=== PATIENT | male | born 2000 | race Caucasian/White ===

== ENCOUNTER 2020-09-10 07:47 | Emergency (ER) | payer SELFPAY ==
[2020-09-10 08:00] VITALS: BP 127/73; PULSE 72; RESP 18; TEMP 36.6; O2SAT 100
[2020-09-10 08:12] LABS: Add Urine Microscopic? NO; Appearance Urine Clear (Clear); Bilirubin Urine Negative (Negative); Blood Urine Negative (Negative); Color Urine Yellow (Yellow); Glucose Urine UA Negative (Negative); Ketones Urine Negative (Negative); Leukocyte Esterase Ur Negative LEU/UL (Negative); Nitrate Urine Negative (Negative); Protein Urine Negative (Negative); pH Urine 7.5 (5.0-8.0)
--- NOTE | 2020-09-10 08:31 | ED.ABDPAIN ---
HPI - Abdominal Pain General Chief Complaint: Abdominal Pain Stated Complaint: low abd and groin pain Source: patient and RN notes reviewed Mode of arrival: ambulatory Limitations: no limitations History of Present Illness HPI narrative: patient states he has been lifting all night at least half his body weight. Feels soreness his left lower quadrant. Started this morning after his work last night. Says goes down into his left inguinal canal and then down into his left thigh. MD elicited complaint: abdominal pain Pertinent past history: none Pain Consistency: intermittent Location: LLQ Severity: moderate Quality: aching and dull Migration to: no migration Exacerbating factors: medication Relieving factors: nothing Associated symptoms: denies other symptoms Related Data Home Medications Medication Instructions Recorded Confirmed No Home Medications 09/10/20 09/10/20 Allergies Allergy/AdvReac Type Severity Reaction Status Date / Time No Known Allergies Allergy Verified 09/10/20 08:06 Review of Systems Review of Systems: All systems reviewed & are unremarkable except as noted in HPI and below PMFSH Past Medical History Medical History (Updated 09/10/20 @ 08:47 by Juan Maldonado MD) No active medical problems Surgical History Surgical History (Updated 09/10/20 @ 08:37 by Juan Maldonado MD) History of tonsillectomy S/P hernia repair Social History Social History (Updated 09/10/20 @ 08:38 by Juan Maldonado MD) Smoking packs per day: 0.5 Smoking cigarettes per day: 10.0 Smoking status: Current every day smoker Tobacco type: cigarettes Alcohol intake: former Substance use: current Substance use type: marijuana Exam Const: General: healthy appearing and no acute distress Nutritional Appearance: well nourished and thin Orientation/consciousness: patient oriented x3 HENMT: Head: normal to inspection Ears: external ears normal Eyes: Conjunctivae: conjunctivae normal Pupils: Equal, round and reactive pupils present EOM: EOMs intact bilaterally Neck: Neck: normal visual inspection Resp: Effort & Inspection: normal respiratory effort Auscultation: clear to auscultation bilaterally Cardio: Rate: regular rate Rhythm: regular rhythm GI: GI Palp: Yes Soft to palpation, Yes Tenderness to palpation present (GI) ( Mildly tender over the right lower quadrant. No rebound or guarding), No Guarding due to palpation present (GI) and No Rebound tenderness present Auscultation: normal bowel sounds Back/Spine/Pelvis: Back: no CVA tenderness Cervical Spine: cervical ROM normal Thoracic/Lumbar Spine: thoraco-lumbar ROM normal Skin: General skin exam: normal color Rashes: no rashes Neuro: General: patient oriented x3, moves all extremities, no meningeal signs and no focal motor deficits Speech: normal speech Gait exam (Neuro): Normal gait present Extrem: General: normal to inspection and no pedal edema Psych: Appearance: grossly normal and well kempt Mental Status: mental status grossly normal Affect: normal affect Attitude: cooperative Thought content: Yes Normal thought content present Course Vital Signs Vital signs: Vital Signs Temperature 36.6 C 09/10/20 08:00 Pulse Rate 72 09/10/20 08:00 Respiratory Rate 18 09/10/20 08:00 Blood Pressure 127/73 09/10/20 08:00 Pulse Oximetry 100 09/10/20 08:00 Temperature 36.6 C 09/10/20 08:00 Pulse Rate 72 09/10/20 08:00 Respiratory Rate 18 09/10/20 08:00 Blood Pressure 127/73 09/10/20 08:00 Pulse Oximetry 100 09/10/20 08:00 MDM - Abdominal Pain Lab Data Attestation: I reviewed the patient's lab results. Labs: Lab Results 09/10/20 Range/Units 08:08 Urine Color Yellow (Yellow) Urine Appearance Clear (Clear) Urine pH 7.5 (5.0-8.0) Ur Specific [place] 1.020 (1.010-1.020) Urine Protein Negative (Negative) Urine Glucose (UA) Negative (Negative) Urine Ketones
[2020-09-10] MEDS: KETOROLAC (*BKC) 60 MG/2 ML VIAL IM (08:41)
[2020-09-10 09:00] VITALS: BP 118/71; PULSE 70; RESP 18; TEMP 36.8; O2SAT 98
== END 2020-09-10 09:02 | disposition home or self-care (01) ==
PROVIDERS: Emergency Provider Emergency Medicine; PCP Nurse Practitioner
DX: S76.212A Strain of adductor muscle, fascia and tendon of left thigh, initial encounter (principal); X50.9XXA Other and unspecified overexertion or strenuous movements or postures, initial encounter
CPT/HCPCS: 81003; 96372; 99282; 99283; J1885

== ENCOUNTER 2020-10-24 14:11 | Emergency (ER) | payer SELFPAY ==
--- NOTE | ~2020-10-24 | XR_ITS ---
EXAMINATION: XR hip RT min 2V DATE: 10/24/2020 15:46 INDICATION: Right hip pain. TECHNIQUE: 2 views of right hip were obtained. COMPARISON: None. FINDINGS: Bone alignment is normal. No fracture. The femoral head/neck morphology is normal. Right hi p joint space is normal. IMPRESSION: 1. Normal right hip. Reviewed, dictated and finalized at location A. LENE PLANT OPERATOR IMPRESSION: 1. Normal right hip.
[2020-10-24 14:23] VITALS: BP 117/64; PULSE 60; RESP 18; TEMP 37.2; O2SAT 100
--- NOTE | 2020-10-24 15:17 | ED.LOWEXIN ---
HPI - Extremity Injury (Lower) General Chief Complaint: Extremity Injury, Lower Stated Complaint: right hip pain, history of dislocation Time Seen by Provider: 10/24/20 14:53 Source: patient Mode of arrival: ambulatory Limitations: no limitations History of Present Illness HPI Narrative: Patient is 20 years old white male complaining of right hip pain for the last few days. Patient been working at [employer] with heavy lifting of heavy boxes in the last 4 months. Patient went to chiropractor 4 days ago, with some improvement. Today patient went back to work and the pain is back again. Patient denies any fever, chills, nausea, vomiting, urinary symptoms or any trauma. Related Data Allergies Allergy/AdvReac Type Severity Reaction Status Date / Time No Known Allergies Allergy Verified 10/24/20 14:27 Review of Systems Review of Systems: Narrative: CONSTITUTIONAL: Denies fever, chills, or sweats. EYES: Denies visual changes, redness, or discharge. ENT: Denies rhinorrhea, congestion, sore throat, or otalgia. CARDIOVASCULAR: Denies chest pain, palpitations, or edema. RESPIRATORY: Denies cough or dyspnea. GASTROINTESTINAL: Denies abdominal pain, nausea, vomiting, or diarrhea. GENITOURINARY: Denies dysuria or hematuria. SKIN: Denies rash or itching. MUSCULOSKELETAL: Right hip pain NEUROLOGIC: Denies headache, numbness, or weakness. PSYCHIATRIC: Denies anxiety or depression. PMFSH Past Medical History Medical History No active medical problems Surgical History Surgical History History of tonsillectomy S/P hernia repair Social History Social History Smoking packs per day: 0.5 Smoking cigarettes per day: 10.0 Smoking status: Current every day smoker Tobacco type: cigarettes Alcohol intake: former Substance use: current Substance use type: marijuana Gender identity (if verbalized by the patient): Male Exam Narrative: Exam Narrative: General appearance: Well-developed, well-nourished Skin: Normal color Head: Normocephalic, nontraumatic Eyes: Clear conjunctiva ENT: Oropharynx normal, ears normal, nose normal Neck: Supple, nontender Chest and respiratory: Airway patent, no respiratory distress, no accessory muscle use Heart: Regular rate/rhythm Abdomen: Soft, nontender, no organomegaly, quiet bowel sounds Vascular: Normal peripheral pulses, normal capillary refill. Musculoskeletal: Slight limited range of motion of the right hip. 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 Patient been working with lifting heavy boxes over the last 4 months. Patient is 45 kg, basically underweight, with weak muscles. Lifting heavy boxes is not compatible to his body strength. Critical Care Time Critical Care Time Critical Care Time: No Discharge Plan Discharge Clinical Impression: Hip sprain Qualifiers: Encounter type: subsequent encounte
[2020-10-24] MEDS: KETOROLAC 30 MG/ML VIAL (*BKC) IV PUSH (15:25)
[2020-10-24 17:11] VITALS: BP 115/60; PULSE 59; RESP 18; O2SAT 100
== END 2020-10-24 17:12 | disposition home or self-care (01) ==
PROVIDERS: Emergency Provider Emergency Medicine
DX: S73.101A Unspecified sprain of right hip, initial encounter (principal); F17.210 Nicotine dependence, cigarettes, uncomplicated; X50.0XXA Overexertion from strenuous movement or load, initial encounter
CPT/HCPCS: 73502; 96374; 99284; J1885

== ENCOUNTER 2021-01-24 13:01 | Outpatient (RCR) | payer BC, SELFPAY ==
--- NOTE | 2021-01-24 14:02 | PTOPEVAL ---
Thank you for referring Samuel Garcia to [facility] The patient is scheduled to be seen for therapy? ____x/week for ___ weeks. Please review, sign, date and return this plan of care IMELDA. I agree with and certify that the following plan of care is medically necessary. Referring Physician Date Admitting Provider: Attending Provider: Mary Hunter, RETAIL FIELD SUPERVISOR Referring Provider: *PT Outpatient Evaluation Start: 01/24/21 13:03 Freq: Status: Active Protocol: Document 01/24/21 13:10 [facility] (Rec: 01/24/21 14:00 [facility] [id number]) Therapy Assessment Status Assessment Status Assessment Status Evaluation Outpatient Past Medical History Respiratory History Hx Pneumonia Yes Gastrointestinal History Hx Hernia Yes Genitourinary History Hx Kidney Stones Yes HEENT History Hx Tonsillectomy Yes Hx Ear Surgery Yes Evaluation Information Problem Diagnosis low back pain Onset 10/14/20 Additional Evaluation Detail oswestry = 64% functionally declined Subjective Information patient reports he has been Query Text:As Reported By Patient/ having pain in the R side Family lower back and posterior hip above the buttocks, down the R buttock, into the leg and down to the foot, and in the groin. he reports the injury occured at work lifting half his body weight for 5 months everyday. he reports he works at [employer]. he reports he is not working and has not been working since october of last year. he reports he has increased pain with sitting, standing, walking, lifting, laying down. he reports he has had mri and x-rays of the lumbar spine. he reports he is going in for a spinal injection tomorrow. he reports MRI says herniated disc at T12 to the L side. he reports he did see a spine surgeon last week. he reports he was sent to pain management and physical therapy. Prior Level of Function Comments Additional Prior Level of Function prior to injury at work, no Comments issues. patient report
--- NOTE | 2021-02-15 07:20 | PCPTNOTE ---
02/15/21 - patient has changed insurance and his new insurance is out of network. patient will be dc'd from skilled PT at this time, and all progress towards goals will be taken from his most recent evaluation/note. DAVEY
== END 2021-01-24 14:20 | disposition home or self-care (01) ==
LOC: CHSPT 13:01
PROVIDERS: Visit Provider Nurse Practitioner Family
DX: M54.5 Low back pain (principal); M54.16 Radiculopathy, lumbar region; R93.7 Abnormal findings on diagnostic imaging of other parts of musculoskeletal system
CPT/HCPCS: 97162

== ENCOUNTER 2022-08-13 09:46 | Emergency (ER) | payer BC, SELFPAY ==
--- NOTE | ~2022-08-13 | CT_ITS ---
EXAMINATION: CT abdomen pelvis wo con DATE: 08/13/2022 11:09 INDICATION: Right flank pain radiating to the right groin. TECHNIQUE: Computed tomography (CT) of the abdomen and pelvis was performed without intravenous contr ast. Automated exposure control and iterative reconstruction technique were employed. The dose-length product was 193.48 mGy-cm. COMPARISON: None. FINDINGS: The visualized portions of the lung bases are clear without pneumonia or pleural effusion. The heart size is normal. No pericardial effusion. The liver, gallbladder, spleen, pancreas, adrenal glands, and kidneys are normal. There is no urolithiasis. There is fat stranding around an epiploic a ppendage of sigmoid colon, consistent with epiploic appendagitis. There are no dilated loops of bowel . The appendix is normal. There is mild thoracic spondylosis. IMPRESSION: 1. Epiploic appendagitis of sigmoid colon. 2. No urolithiasis. Reviewed, dictated and finalized at location A.
[2022-08-13 09:48] VITALS: BP 132/82; PULSE 80; RESP 18; TEMP 36.2; O2SAT 99
--- NOTE | 2022-08-13 09:59 | ED.BACK ---
HPI - Back Pain/Injury General Chief Complaint: Urogenital-Male Stated Complaint: pain r groin, lower back Time Seen by Provider: 08/13/22 09:58 History of Present Illness HPI Narrative: 22-year-old male patient is here with complaints of pain in the right flank area that radiates into the right groin. Patient has experienced pain for the last few days off and on. For last 2 days the pain has settled more into the right groin area. The pain is constant and not radiating anywhere into the genitalia. He relates that the pain is mild to moderate. He has no associated difficulty with urination or defecation. He denies any associated nausea or vomiting. Denies any fever or chills. States has a normal appetite and his last meal was this morning. Patient states that he has had kidney stones in the past. Patient drinks alcohol almost every day and smokes half pack of cigarettes every day. Related Data Home Medications Medication Instructions Recorded Confirmed cyclobenzaprine 10 mg tablet 10 mg PO TID PRN muscle spasm 08/13/22 08/13/22 pregabalin 25 mg capsule (Lyrica) 25 mg PO DAILY 08/13/22 08/13/22 Allergies Allergy/AdvReac Type Severity Reaction Status Date / Time No Known Allergies Allergy Verified 10/24/20 14:27 Review of Systems Review of Systems: All systems reviewed & are unremarkable except as noted in HPI and below Constitutional: Constitutional: Reports no additional constitutional complaints, Denies chills, Denies fatigue, Denies fever(s) and Denies weakness Eyes: Eyes: Reports no additional eye complaints ENT: Reports system reviewed and no additional complaints, except as documented Cardiovascular: Cardiovascular: Reports no additional cardiovascular complaints Respiratory: Respiratory: Reports no additional respiratory complaints Gastrointestinal: Gastrointestinal: Reports no additional gastrointestinal complaints Genitourinary: Genitourinary: Reports no additional male genitourinary complaints Musculoskeletal: Musculoskeletal: Reports no additional musculoskeletal complaints Integumentary/Breasts: Skin/Breast: Reports system reviewed and no additional complaints, except as docu Neurologic: Reports system reviewed and no additional complaints, except as documented Psychiatric: Psychiatric: Reports no additional psychiatric complaints Endocrine: Endocrine: Reports no additional endocrine complaints PMFSH Past Medical History Medical History Kidney stones No active medical problems Surgical History Surgical History History of tonsillectomy S/P hernia repair Social History Social History Smoking packs per day: 0.5 Smoking cigarettes per day: 10.0 Smoking status: Current every day smoker Tobacco type: cigarettes Alcohol intake: former Substance use: current Substance use type: marijuana Gender identity (if verbalized by the patient): Male Exam Const: General: healthy appearing, no acute distress and alert Nutritional Appearance: well nourished and thin Orientation/consciousness: patient oriented x3 Limitations: no limitations HENMT: Head: normal to inspection Ears: external ears normal General nose exam: Normal external nose present Face and sinus: normal facial exam Mouth: Yes Normal oral and palatal mucosa present and Yes moist mucous membranes Eyes: Conjunctivae: conjunctivae normal Pupils: Equal, round and reactive pupils present EOM: EOMs intact bilaterally Direct Ophthalmoscopy: no photophobia Neck: Neck: normal visual inspection Chest: Chest palpation & inspection: normal inspection of the chest Resp: Effort & Inspection: normal respiratory effort Auscultation: clear to auscultation bilaterally Cardio: Rate: regular rate Rhythm: regular rhythm GI: Inspection: non-distended Auscultation: norm
[2022-08-13 10:42] LABS: Basophils Absolute Auto 0.05 K/mm3 (0.00-0.10); Basophils Percent Auto 0.7 % (0.0-1.0); Eosinophils Absolute Auto 0.11 K/mm3 (0.02-0.50); Eosinophils Percent Auto 1.5 % (1.0-6.0); Hemoglobin 14.5 g/dL (14.0-18.0); Immature Granulocyte Absolute 0.03 K/mm3 (0.00-0.00); Immature Granulocyte Percent A 0.4 % (0.0-0.0); Lymphocytes Absolute Auto 2.24 K/mm3 (1.10-4.50); Mean Corpuscular HGB Conc 33.7 g/dL (32.0-36.0); Mean Corpuscular Hemoglobin 31.2 pg (27.0-31.0); Mean Corpuscular Volume 92.5 fL (78.0-102.0); Mean Platelet Volume 9.8 fl (8.7-11.0); Monocytes Absolute Auto 0.52 K/mm3 (0.10-0.90); Neutrophils Absolute Auto 4.5 K/mm3 (1.7-7.2); Neutrophils Percent Auto 60.4 % (50.0-70.0); Platelet Count Result 245 K/mm3 (150-420); Red Blood Count 4.65 M/mm3 (4.70-6.10); Red Cell Distribution Width 13.5 % (11.6-14.4); White Blood Count 7.5 K/mm3 (4.8-10.8)
[2022-08-13 10:50] VITALS: BP 110/80; PULSE 66; RESP 18; TEMP 36.3; O2SAT 98
[2022-08-13 10:58] LABS: Add Urine Microscopic? NO; Appearance Urine Clear (Clear); Bilirubin Urine Negative (Negative); Blood Urine Negative (Negative); Color Urine Yellow (Yellow); Glucose Urine UA Negative (Negative); Ketones Urine Negative (Negative); Leukocyte Esterase Ur Negative LEU/UL (Negative); Nitrate Urine Negative (Negative); Protein Urine Negative (Negative); Specific Grav Ur 1.025 (1.010-1.020); pH Urine 6.5 (5.0-8.0)
[2022-08-13 11:07] LABS: Alanine Aminotransferase 22 U/L (16-63); Albumin Level 3.8 g/dL (3.4-5.0); Alkaline Phosphatase 85 U/L (46-116); Anion Gap 6 mmol/L (8-16); Aspartate Amino Transferase 19 U/L (15-37); Bilirubin,Total 0.3 mg/dL (0.00-1.00); Blood Urea Nitrogen 11 mg/dL (7-18); Calcium 9.1 mg/dL (8.5-10.1); Carbon Dioxide 27 mmol/L (21-32); Chloride 106 mmol/L (98-108); Estimated CRCL calculation 86 ml/min; Estimated Glomerular Filt Rate > 60; Glucose 107 mg/dL (70-99); Osmolality Calculated 287 mOsm/kg (285-295); Potassium 3.6 mmol/L (3.5-5.1); Sodium 139 mmol/L (136-145); Total Protein 6.7 g/dL (6.4-8.2)
[2022-08-13 12:20] VITALS: BP 115/75; PULSE 61; RESP 16; TEMP 36.5; O2SAT 98
--- NOTE | 2022-08-13 12:34 | PC.NURSE ---
On 08/13/22, the student, [ KAM OROZCO], provided care and completed [facility] documentation on this patient. I have reviewed the student's documentation and agree with the findings.
== END 2022-08-13 12:35 | disposition home or self-care (01) ==
PROVIDERS: Emergency Provider Emergency Medicine
DX: R10.9 Unspecified abdominal pain (principal); M54.9 Dorsalgia, unspecified
CPT/HCPCS: 36415; 74176; 80053; 81003; 85025; 99284

== ENCOUNTER 2022-12-03 14:57 | Emergency (ER) | payer BC, SELFPAY ==
--- NOTE | ~2022-12-03 | XR_ITS ---
EXAMINATION: XR chest 2V Exam Date/Time: 12/03/2022 15:34 COMMODITIES TRADER HISTORY: persistent cough, CHEST PAIN WHEN BREATHING Comparison: None available. RESULT: Lines, tubes, and devices: None. Lungs and pleura: Clear. Cardiomediastinal silhouette: Unremarkable. Other: No acute osseous or upper abdominal finding. IMPRESSION: No acute cardiopulmonary process. Reviewed, dictated and finalized at location K. ODITIES TRADER
--- NOTE | 2022-12-03 15:10 | ED.URI ---
HPI - URI/Sore Throat General Chief Complaint: Upper Respiratory Infection Stated Complaint: cough Time Seen by Provider: 12/03/22 15:09 History of Present Illness HPI Narrative: 25-year-old male patient presents to ER with complaints of cough for over a month. States the cough is productive with thick yellow sputum. Patient is a smoker of half a pack of cigarettes a day. He has just finished a 10 day course of Augmentin prescribed for the cough at the an outpatient clinic. He states that he still has cough and that causes some discomfort in the chest. He denies any blood in the sputum. He denies any fever or chills. He also denies any unusual nasal congestion. He did have a negative COVID and flu test at the about 2 weeks ago. Otherwise the patient is generally in good health. There is some history of childhood asthma and patient does have a rescue inhaler which she uses occasionally. Related Data Allergies Allergy/AdvReac Type Severity Reaction Status Date / Time No Known Allergies Allergy Verified 12/03/22 15:17 Review of Systems Review of Systems: All systems reviewed & are unremarkable except as noted in HPI and below Constitutional: Constitutional: Denies chills, Denies fatigue, Denies fever(s) and Denies weakness Eyes: Eyes: Reports no additional eye complaints ENT: Reports system reviewed and no additional complaints, except as documented Cardiovascular: Cardiovascular: Reports no additional cardiovascular complaints Respiratory: Respiratory: Reports no additional respiratory complaints and Reports cough Gastrointestinal: Gastrointestinal: Reports no additional gastrointestinal complaints Genitourinary: Genitourinary: Reports no additional male genitourinary complaints Musculoskeletal: Musculoskeletal: Reports no additional musculoskeletal complaints Integumentary/Breasts: Skin/Breast: Reports system reviewed and no additional complaints, except as docu Neurologic: Reports system reviewed and no additional complaints, except as documented Psychiatric: Psychiatric: Reports no additional psychiatric complaints Endocrine: Endocrine: Reports no additional endocrine complaints Hematologic/Lymphatic: Hematologic/Lymphatic: Reports no additional hematologic/lymphatic complaints Allergic/Immunologic: Allergic/Immunologic: Reports no additional allergic/immunologic complaints [facility] Past Medical History Medical History Kidney stones No active medical problems Surgical History Surgical History History of tonsillectomy S/P hernia repair Social History Social History Smoking packs per day: 0.5 Smoking cigarettes per day: 10.0 Smoking status: Current every day smoker Tobacco type: cigarettes Alcohol intake: former Substance use: current Substance use type: marijuana Gender identity (if verbalized by the patient): Male Exam Const: General: healthy appearing, no acute distress and alert Nutritional Appearance: well nourished Orientation/consciousness: patient oriented x3 HENMT: Head: normal to inspection Ears: external ears normal Face/Nose/Sinus: Normal external nose present Face and sinus: normal facial exam Mouth: Yes Normal oral and palatal mucosa present Throat: posterior oropharynx normal Eyes: Conjunctivae: conjunctivae normal Neck: Neck: normal visual inspection Chest: Chest palpation & inspection: normal inspection of the chest Resp: Effort & Inspection: normal respiratory effort Auscultation: clear to auscultation bilaterally, no crackles, no rales, no rhonchi and wheezes (with coughing only ) Cardio: Rate: regular rate Rhythm: regular rhythm Heart sounds: no murmurs GI: GI Palp: Yes Soft to palpation, No Tenderness to palpation present (GI) and No Guarding due to palpation present (GI) Auscultation: normal jordin
[2022-12-03 15:12] VITALS: BP 131/76; PULSE 88; RESP 18; TEMP 37.1; O2SAT 99
[2022-12-03 16:05] LABS: Influenza A QL RT-PCR Negative (Negative); Influenza B QL RT-PCR Negative (Negative); SARS-CoV-2 RNA PCR Negative (Negative)
[2022-12-03 16:06] LABS: RSV RNA, RT-PCR Negative (Negative)
[2022-12-03 16:08] VITALS: BP 117/84; PULSE 78; RESP 18; O2SAT 98
--- NOTE | 2022-12-03 16:09 | PC.NURSE ---
Pt in NAD, resting comfortably in exam room, during assessment and reassesment, pt breathing with no difficulty, no coughing observed.
== END 2022-12-03 16:27 | disposition home or self-care (01) ==
PROVIDERS: Emergency Provider Emergency Medicine
DX: J41.0 Simple chronic bronchitis (principal); F17.210 Nicotine dependence, cigarettes, uncomplicated; Z20.822 Contact with and (suspected) exposure to COVID-19
CPT/HCPCS: 71046; 87637; 99283

== ENCOUNTER 2023-04-04 00:05 | Emergency (ER) | payer BC, SELFPAY ==
--- NOTE | ~2023-04-04 | CT_ITS ---
EXAMINATION: CT abdomen pelvis wo con DATE: 04/04/2023 08:07 INDICATION: Abdominal pain TECHNIQUE: Computed tomography (CT) of the abdomen and pelvis was performed without intravenous contr ast. The dose-length product was 200.97 mGy-cm. Automated exposure control and iterative reconstructi on technique were employed. COMPARISON: CT dated 08/13/2022. FINDINGS: There is focal groundglass opacities in the right lower lobe. Heart size normal. No signifi cant pleural or pericardial effusion. The liver, spleen, pancreas, adrenal glands and kidneys are unr emarkable. Gallbladder is present. No free air or free fluid. No significant vascular abnormality. No lymphadenopathy. Nonobstructive bowel pattern. Colonic diverticulosis without evidence for diverticu litis. Gallbladder is present. Levoscoliosis. Vertebral body heights are maintained. No focal lytic o r blastic lesions. IMPRESSION: 1. Focal groundglass opacities of the right lower lobe, most likely infectious/inflammatory. Reviewed, dictated and finalized at location B. IMPRESSION: 1. Focal groundglass opacities of the right lower lobe, most likely infectious/ inflammatory.
--- NOTE | ~2023-04-04 | XR_ITS ---
EXAMINATION: XR chest 2V 04/04/2023 08:08 INDICATION: Shortness of breath and chest pain PROCEDURE: 2 view chest COMPARISON: 12/03/2022 FINDINGS: The lungs are clear. The cardiomediastinal silhouette is within normal limits. There are no pleural effusions. There is no pneumothorax suspected. IMPRESSION: 1: NO ACUTE CARDIOPULMONARY DISEASE. Reviewed, dictated and finalized at location B.
[2023-04-04 14:22] LABS: Appearance Urine Cloudy (Clear); Blood Urine Negative (Negative); Color Urine Light Yellow (Yellow); Glucose Urine UA Negative (Negative); Ketones Urine Negative (Negative); Protein Urine Negative (Negative)
[2023-04-04 14:23] LABS: Add Urine Microscopic? YES; Bilirubin Urine Negative (Negative); Leukocyte Esterase Ur Trace (Negative); Nitrate Urine Negative (Negative); RBC Urine 0-2 /hpf (0-2); WBC Urine 0-3 /hpf (0-3)
[2023-04-04 14:24] LABS: Amorphous Sediment Urine Heavy; Bacteria Urine 1+ /hpf; Hemoglobin 15.9 g/dL (14.0-18.0); Red Blood Count 5.01 M/mm3 (4.70-6.10); White Blood Count 11.5 K/mm3 (4.8-10.8)
[2023-04-04 14:25] LABS: Basophils Percent Auto 0.4 % (0.0-1.0); Eosinophils Percent Auto 1.6 % (1.0-6.0); Hematocrit 45.8 % (40.0-54.0); Immature Granulocyte Absolute 0.03 K/mm3 (0.00-0.00); Immature Granulocyte Percent A 0.3 % (0.0-0.0); Lymphocytes Absolute Auto 4.61 K/mm3 (1.10-4.50); Lymphocytes Percent Auto 40.2 % (18.0-42.0); Mean Corpuscular HGB Conc 34.7 g/dL (32.0-36.0); Mean Corpuscular Hemoglobin 31.7 pg (27.0-31.0); Mean Corpuscular Volume 91.4 fL (78.0-102.0); Mean Platelet Volume 10.2 fl (8.7-11.0); Neutrophils Absolute Auto 5.7 K/mm3 (1.7-7.2); Neutrophils Percent Auto 49.5 % (50.0-70.0); Platelet Count Result 200 K/mm3 (150-420); Red Cell Distribution Width 11.9 % (11.6-14.4)
[2023-04-04 14:26] LABS: Anion Gap 7 mmol/L (8-16); Basophils Absolute Auto 0.05 K/mm3 (0.00-0.10); Blood Urea Nitrogen 9 mg/dL (7-18); Carbon Dioxide 30 mmol/L (21-32); Chloride 104 mmol/L (98-108); Eosinophils Absolute Auto 0.18 K/mm3 (0.02-0.50); Estimated Glomerular Filt Rate > 60; Monocytes Absolute Auto 0.92 K/mm3 (0.10-0.90); Potassium 3.6 mmol/L (3.5-5.1); Sodium 141 mmol/L (136-145)
[2023-04-04 14:27] LABS: Calcium 9.1 mg/dL (8.5-10.1); Glucose 107 mg/dL (70-99); Osmolality Calculated 290 mOsm/kg (285-295)
[2023-04-04 14:28] LABS: Alanine Aminotransferase 24 U/L (16-63); Albumin Level 3.8 g/dL (3.4-5.0); Alkaline Phosphatase 85 U/L (46-116); Aspartate Amino Transferase 18 U/L (15-37); Bilirubin,Total 0.4 mg/dL (0.00-1.00); Lipase 49 U/L (16-77); Total Protein 7.1 g/dL (6.4-8.2)
== END 2023-04-04 03:28 | disposition home or self-care (01) ==
PROVIDERS: Emergency Provider Emergency Medicine; PCP Physician Assistant
DX: R10.12 Left upper quadrant pain (principal)
CPT/HCPCS: 36415; 71046; 74176; 80053; 81001; 83690; 85025; 96372; 99284; J1885

== ENCOUNTER 2024-10-07 07:22 | Emergency (ER) | payer OTHER, SELFPAY ==
--- NOTE | ~2024-10-07 | XR_ITS ---
XR foot LT min 3V Ordering provider: Mani Elliott MD History: . LATERAL FOOT AFTER KICKING DOOR . Comparison: None. FINDINGS: BONES: No acute fracture or dislocation. JOINT SPACES: Normal. No tarsal coalition. SOFT TISSUES: Normal. IMPRESSION: No acute osseous abnormality left foot. Reviewed, dictated and finalized at location [facility]
[2024-10-07 07:27] VITALS: BP 155/97; PULSE 72; RESP 18; TEMP 36.4; O2SAT 100
--- NOTE | 2024-10-07 07:38 | ED_ITS ---
HPI - Extremity Injury (Lower) General Chief Complaint: Extremity Injury, Lower Stated Complaint: foot injury Time Seen by Provider: 10/07/24 07:34 Source: patient Mode of arrival: ambulatory Limitations: no limitations History of Present Illness HPI Narrative: Patient is a 24-year-old male with significant past medical history that presents today for foot injury. Patient says that he likes to keep the door open with his foot and he kicked the door open with his left foot and stated her more than normal. He says he can walk on but it is painful to walk and most the pain is on the dorsum of left foot. complaint: foot injury Onset (ago): hour(s) Injury: Left: foot Type of Injury: blunt Place: home Severity: mild Severity scale (1-10): 3 Relieving factors: NSAID Exacerbating factors: weight bearing Context: direct blow Related Data Home Medications Medication Instructions Recorded Confirmed No Home Medications 10/07/24 10/07/24 Allergies Allergy/AdvReac Type Severity Reaction Status Date / Time No Known Allergies Allergy Verified 10/07/24 07:28 Review of Systems Review of Systems: All systems reviewed & are unremarkable except as noted in HPI and below Constitutional: Constitutional: Reports as per HPI Eyes: Eyes: Reports no additional eye complaints ENT: Reports system reviewed and no additional complaints, except as documented Cardiovascular: Cardiovascular: Reports no additional cardiovascular complaints Respiratory: Respiratory: Reports no additional respiratory complaints Gastrointestinal: Gastrointestinal: Reports no additional gastrointestinal complaints Genitourinary: Genitourinary: Reports no additional male genitourinary complaints Musculoskeletal: Musculoskeletal: Reports no additional musculoskeletal complaints Integumentary/Breasts: Skin/Breast: Reports system reviewed and no additional complaints, except as docu Neurologic: Reports system reviewed and no additional complaints, except as documented Psychiatric: Psychiatric: Reports no additional psychiatric complaints Endocrine: Endocrine: Reports no additional endocrine complaints Hematologic/Lymphatic: Hematologic/Lymphatic: Reports no additional hematologic/lymphatic complaints Allergic/Immunologic: Allergic/Immunologic: Reports no additional allergic/immunologic complaints [facility] Past Medical History Medical History Kidney stones No active medical problems Surgical History Surgical History History of tonsillectomy S/P hernia repair Social History Social History Smoking packs per day: 0.5 Smoking cigarettes per day: 10.0 Smoking status: Current every day smoker Tobacco type: cigarettes Alcohol intake: former Substance use: current Substance use type: marijuana Gender identity (if verbalized by the patient): Male Exam Const: General: healthy appearing, no acute distress and alert Nutritional Appearance: well nourished Orientation/consciousness: patient oriented x3 HENMT: Head: normal to inspection Ears: external ears normal Face/Nose/Sinus: Normal external nose present Eyes: Conjunctivae: conjunctivae normal Pupils: Equal, round and reactive pupils present EOM: EOMs intact bilaterally Neck: Neck: normal visual inspection Chest: Chest palpation & inspection: normal inspection of the chest Resp: Effort & Inspection: normal respiratory effort Auscultation: clear to auscultation bilaterally Cardio: Rate: regular rate Rhythm: regular rhythm GI: GI Palp: Yes Soft to palpation and Yes Tenderness to palpation present (GI) Back/Spine/Pelvis: Back: no CVA tenderness Skin: General skin exam: normal color Rashes: no rashes Wounds: no wounds Neuro: General: patient oriented x3, moves all extremities and no meningeal signs Extrem: General: normal to inspection and no clubbing, cyanosis or edema Psych: Mental Status: mental status grossly normal Affect: normal affect Course Vital Signs Vital signs: Vital Signs Oxygen Delivery Room Air 10/07/24 07:22 Temperature 97.5 F L 10/07/24 07:27 Pulse Rate 72 10/07/24 07:27 Respiratory Rate 18 10/07/24 07:27 Blood Pressure 155/97 H 10/07/24 07:27 Pulse Oximetry 100 10/07/24 07:27 Oxygen Delivery Room Air 10/07/24 07:27 MDM - Extremity Injury (Lower) MDM Narrative Medical decision making narrative: Patient hit mentor pretty hard shaking it was left. Is very tender on the dorsum of the and left foot. will do an x-ray of the left foot and his treatment on the results of the x-ray. He might have fractured his 4th metatarsal area. Pursuing x-ray shows. Differential Diagnosis Differential diagnosis: Likely ankle sprain and strain and fracture of toe Medical Records Attestation: I reviewed the patient's medical records. Lab Data Attestation: I reviewed the patient's lab results. Discharge Plan Discharge Clinical Impression: Foot sprain Patient Disposition: Home, Self-Care Condition: Stable Instructions: Foot Contusion (ED) Prescriptions: No Action No Home Medications Follow-up/Referrals: UNKNOWN,DOCTOR [Primary Care Provider] - Time of Disposition: 08:37
== END 2024-10-07 08:45 | disposition home or self-care (01) ==
PROVIDERS: Emergency Provider Family Medicine
DX: S93.602A Unspecified sprain of left foot, initial encounter (principal); F17.210 Nicotine dependence, cigarettes, uncomplicated; W22.09XA Striking against other stationary object, initial encounter
CPT/HCPCS: 73630; 99283

== ENCOUNTER 2025-08-19 15:03 | Emergency (ER) | payer OTHER, SELFPAY ==
[2025-08-19] VITALS (16 sets, daily range): BP systolic 127–151; BP diastolic 77–93; PULSE 63–120; RESP 11–18; TEMP 36.5–36.6; O2SAT 97–100
--- NOTE | ~2025-08-19 | XR_ITS ---
EXAMINATION: XR chest 1V portable 08/19/2025 15:26 INDICATION: Alcohol withdrawal PROCEDURE: AP portable chest COMPARISON: 04/04/2023 FINDINGS: The lungs are clear. The cardiomediastinal silhouette is within normal limits. There are no pleural effusions. There is no pneumothorax suspected. IMPRESSION: 1: NO ACUTE CARDIOPULMONARY DISEASE. Reviewed, dictated and finalized at location O.
--- OUTSIDE RECORDS SUMMARY | 2025-08-19 15:06 | XMS_ITS | Clinical Summary ---
Author Organization [facility] Address [facility] [place] [address] Care Team Providers Care Market Analyst Name Role Phone None, Provider MD Primary Care Provider Unavaila ble Allergies No known active allergies Medications traMADol (ULTRAM) 50 MG tabletIndicatio ns:Acute Pain < 7 Day Supply Indications: Acute Pain < 7 Day Supply 1-2 every 6 hours as needed for pain 20 tablet 4 Active Additional Information Patient not taking.Reported on 10/20/2024 methylPREDNISol THOMAS mccoy (MEDROL DOSEPAK) 4 MG tablet 4 mg Oral Tablet Therapy Pack. Follow package directions 1 each 4 Active Active Problems Problem Noted Date Diagnosed Date Abnormal MRI, thoracic spine 12/28/2020 Sprain lumbar region, initial encounter 11/03/20 20 Family History Medical History Relation Comments Cancer Maternal Grandfather Cancer Maternal Grandmother Diabetes Maternal Grandmother Diabetes Mother Relation Status Comments Father Maternal Grandfather Maternal Grandmother Alive Mother Alive Paternal Grandfather Paternal Grandmother Social History Tobacco Use Types Packs/Day Years Used Date Smoking Tobacco: Former Cigarettes Smokeless Tobacco: Never Tobacco Cessation:Counseling Given: Not Answered Alcohol Use Standard Drinks/Week Comments Yes 0 (1 standard drink = 0.6 oz pur e alcohol) AUDIT-C Answer Date Recorded Frequency of Alcohol Consumption Never 08/21/2019 Average Number of Drinks Not on file 019 Frequency of Binge Drinking Not on file 07/28 Sex and Gender Information Value Date Recorded Sex Assigned at Not on file 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 Gender Identity Not on file Sexual Orientation Not on file Last Filed Vital Signs Vital Sign Reading Time Taken Comments Blood Pressure 140/83 10/13/2024 10:22 PM THERMAL CUTTING TRACER MACHINE OPERATOR Pulse 83 10/13/2024 10:22 PM THERMAL CUTTING TRACER MACHINE OPERATOR Temperature 36.4 C (97.6 F) 10/13/2024 10:22 PM THERMAL CUTTING TRACER MACHINE OPERATOR Respiratory Rate 16 10/13/2024 10:22 PM THERMAL CUTTING TRACER MACHINE OPERATOR Oxygen Saturation 99% 10/13/2024 10:22 PM THERMAL CUTTING TRACER MACHINE OPERATOR Inhaled Oxygen Concentration - - Weight 57.2 kg (126 lb) 10/20/2024 2:54 PM THERMAL CUTTING TRACER MACHINE OPERATOR Height 165.1 cm (5' 5) 10/20/2024 2:54 PM THERMAL CUTTING TRACER MACHINE OPERATOR Body Mass Index 20.97 10/20/2024 2:54 PM THERMAL CUTTING TRACER MACHINE OPERATOR Plan of Treatment Health Maintenance Due Date Last Done Comments Annual Physical 2002 DTaP, Tdap and Td Vaccines (6 - Tdap) 2010 08/10/2004, 07/17/2000, 1999, Additional history exists HPV Vaccines (1 - Male 3-dose series) 2014 Hepatitis C 2017 Hepatitis B Vaccines (1 of 3 - 19+ 3-dose series) 2018 COVID-19 Vaccine ( - season) 2025 Meningococcal Vaccine Completed 11/01/2016 Meningococcal B Vaccine Aged Out No l onger eligible based on patient's age to complete this topic Pneumococcal Vaccine: Pediatrics (0 to 5 Years) and At-Risk Patients (6 to 49 Years) Aged Out No longer eligible based on patient's age to complete this topic RSV Immunizations Under 20 Months Aged Out No longer eligible based on patient's age to complete this topic Care Teams Market Analyst Relationship Specialty Start Date End Date None, Provider, PCP - General UNKNOWN PHYSICIAN SPECIALTY 10/13/24
--- OUTSIDE RECORDS SUMMARY | 2025-08-19 15:06 | XMS_ITS | Clinical Summary ---
Author Organization [facility] Address [address] [address] Care Team Providers Care Manager It Training Name Role Phone Unavailable Primary Care Provider Unavailabl e Source Comments [facility],non-owned Affiliates and Associated Physician Practices is amultiple site organization consisting of ambulatory clinics and hospital sitesin [place] and [place]. This disclosure is being madepursuant to the Care Everywhere program and may not contain all information available regarding this patient. Last updated 18.[facility] Social History Tobacco Use Types Packs/Day Years Used Date Smoking Tobacco: Never Assessed Sex and Gender Information Value Date Recorded Sex Assigned at Not on file Legal Sex Male 10:16 AM CDT Gender Identity Not on file Sexual Orientation Not on file Plan of Treatment Health Maintenance Due Date Last Done Comments HIV SCREENING 2014 HPV VACCINE (1 - Male 3-dose series) 2014 HEPATITIS C SCREENING 01/06/2017 DTAP/TDAP/TD VACCINES (1 - Tdap) 2018 HEPATITIS B VACCINE (1 of 3 - 19+ 3-dose series) 2018 DEPRESSION SCREENING 11/26/2024 COVID-19 VACCINE ( - 2023-2 5 season) 2025 INFLUENZA VACCINE (#1) 2025 ZOSTER VACCINE (1 of 2) 2049 HIB VACCINE Aged Out No longer eligi ble based on patient's age to complete this topic MENINGOCOCCAL (Group B) VACC INE SHARED DECISION-MAKING Aged Out No longer eligibl e based on patient's age to complete this topic MENINGOCOCCAL GROUPS A/C/Y/W VACCINE Aged Out No longer eligible b ased on patient's age to complete this topic PNEUMOCOCCAL VACCINE Aged Out No long er eligible based on patient's age to complete this topic
--- OUTSIDE RECORDS SUMMARY | 2025-08-19 15:06 | XMS_ITS | Encounter Summary ---
Author Organization [facility] Address [address] [place] [address] Care Team Providers Care Lean Specialist Name Role Phone None, Provider Primary Care Provider Unavaila Rowena Stoner NP Primary Care Provider [phone] None, Provider Primary Care Provider Elvaa ble Encounter Details Date Type Department Care Team (Late st Contact Info) Description 05/03/2019 Abstract SFL CONVERSION [address] [place] [address] , Generic Conversion, Social History Tobacco Use Types Packs/Day Years Used Date Smoking Tobacco: Never Assessed Sex and Gender Information Value Date Recorded Sex Assigned at Not on file 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
--- NOTE | 2025-08-19 15:08 | ED.ALCOHOL ---
HPI - Alcohol General Chief Complaint: Nausea/Vomiting/Diarrhea Stated Complaint: vomiting & weakness Time Seen by Provider: 08/19/25 15:08 Source: patient Mode of arrival: ambulatory Limitations: no limitations History of Present Illness HPI narrative: Patient is a 25-year-old male with nausea vomiting and alcohol withdrawal today. He drinks about 7 whiskeys a day and was at a event this week that checked for alcoholism and he scored high and they sent him to rehab. Patient is in outpatient rehab with [facility]. Patient has tremors/shakes without delirium. No injuries. No chest pain. No seizures. MD complaint: alcohol withdrawal and alcohol dependence Last drink: days (ago) (One) Amount of alcohol consumed: 7 whiskeys a day Chronic alcohol use: Yes Previous visits for alcohol intoxication: No Recent trauma: No Associated symptoms: nausea and vomiting Treatments prior to arrival: none Related Data Allergies Allergy/AdvReac Type Severity Reaction Status Date / Time No Known Allergies Allergy Verified 08/19/25 15:06 Review of Systems Review of Systems: All systems reviewed & are unremarkable except as noted in HPI and below Constitutional: Constitutional: Reports no additional constitutional complaints Eyes: Eyes: Reports no additional eye complaints ENT: Reports system reviewed and no additional complaints, except as documented Cardiovascular: Cardiovascular: Reports no additional cardiovascular complaints Respiratory: Respiratory: Reports no additional respiratory complaints Gastrointestinal: Gastrointestinal: Reports no additional gastrointestinal complaints Genitourinary: Genitourinary: Reports no additional male genitourinary complaints Musculoskeletal: Musculoskeletal: Reports no additional musculoskeletal complaints Integumentary/Breasts: Skin/Breast: Reports system reviewed and no additional complaints, except as docu Neurologic: Reports system reviewed and no additional complaints, except as documented Psychiatric: Psychiatric: Reports no additional psychiatric complaints Endocrine: Endocrine: Reports no additional endocrine complaints Hematologic/Lymphatic: Hematologic/Lymphatic: Reports no additional hematologic/lymphatic complaints Allergic/Immunologic: Allergic/Immunologic: Reports no additional allergic/immunologic complaints [facility] Past Medical History Medical History Kidney stones No active medical problems Surgical History Surgical History History of tonsillectomy S/P hernia repair Social History Social History Smoking packs per day: 0.5 Smoking cigarettes per day: 10.0 Smoking status: Current every day smoker Tobacco type: cigarettes Alcohol intake: former Substance use: current Substance use type: marijuana Gender identity (if verbalized by the patient): Male Exam Const: General: no acute distress Nutritional Appearance: well nourished Orientation/consciousness: patient oriented x3 Limitations: no limitations Other: Patient is not having acute delirium and is not intoxicated HENMT: Head: normal to inspection Ears: external ears normal Face/Nose/Sinus: Normal external nose present Eyes: Conjunctivae: conjunctivae normal Pupils: Equal, round and reactive pupils present EOM: EOMs intact bilaterally Neck: Neck: normal visual inspection Chest: Chest palpation & inspection: normal inspection of the chest Resp: Effort & Inspection: normal respiratory effort and not labored Auscultation: clear to auscultation bilaterally and no crackles Cardio: Rate: regular rate Rhythm: regular rhythm Heart sounds: no murmurs GI: Inspection: non-distended GI Palp: Yes Soft to palpation and No Tenderness to palpation present (GI) Auscultation: normal bowel sounds : General: Yes bladder normal to palpation Back/Spine/Pelvis: Back: no CVA tenderness Skin: General skin exam: normal color Rashes: no rashes Wounds: no wounds Neuro: General: patient oriented x3, moves all extremities, no meningeal signs, no focal motor deficits and CN's II-XI intact bilaterally Other: Patient has shakes/tremors Extrem: General: normal to inspection Psych: Mental Status: mental status grossly normal Affect: normal affect Attitude: cooperative Course Vital Signs Vital signs: Vital Signs Temperature 36.6 C 08/19/25 15:06 Pulse Rate 120 H 08/19/25 15:06 Respiratory Rate 18 08/19/25 15:06 Blood Pressure 151/93 H 08/19/25 15:06 Pulse Oximetry 98 08/19/25 15:06 Oxygen Delivery Room Air 08/19/25 15:06 Temperature 36.6 C 08/19/25 15:06 Pulse Rate 83 08/19/25 16:15 Respiratory Rate 15 08/19/25 16:15 Blood Pressure 127/79 08/19/25 16:01 Pulse Oximetry 98 08/19/25 16:15 Oxygen Delivery Room Air 08/19/25 15:06 MDM - Alcohol MDM Narrative Medical decision making narrative: Patient is a 25-year-old male with alcohol withdrawal on day 2. CIWA score 13. Labs and urine. Chest x-ray. We will see if he is needing admission versus transfer versus discharge home when we are completed and getting his shakes under control. Diazepam an IV. Thiamine. EKG. No prior history of DTs or withdrawal issues except some nausea in the prior withdrawal trials but he has been drinking alcohol for many many years. Lab Data Attestation: I reviewed the patient's lab results. 08/19/25 15:25 08/19/25 15:25 Labs: Lab Results 08/19/25 08/19/25 Range/Units 15:25 16:19 WBC 10.3 (4.8-10.8) K/mm3 RBC 4.74 (4.70-6.10) M/mm3 Hgb 15.4 (14.0-18.0) g/dL Hct 42.8 (40.0-54.0) % MCV 90.3 (78.0-102.0) fL MCH 32.5 H (27.0-31.0) pg MCHC 36.0 (32-36) g/dL RDW 11.9 (11.6-14.4) % Plt Count 279 (150-420) K/mm3 MPV 9.1 (8.7-11.0) fl Immature Gran % (Auto) 0.3 H (0.0-0.0) % Neut % (Auto) 87.4 H (50.0-70.0) % Lymph % (Auto) 8.2 L (18.0-42.0) % [place] % (Auto) 3.5 (2.0-11.0) % Eos % (Auto) 0.0 L (1.0-6.0) % Baso % (Auto) 0.6 (0.0-1.0) % Lymph # (Auto) 0.84 L (1.10-4.50) K/mm3 [place] # (Auto) 0.36 (0.10-0.90) K/mm3 Eos # (Auto) 0.00 L (0.02-0.50) K/mm3 Baso # (Auto) 0.06 (0.00-0.10) K/mm3 Abs Immat Gran (auto) 0.03 H (0.00-0.00) K/mm3 Absolute Neuts (auto) 8.98 H (1.70-7.20) K/mm3 Absolute Nucleated RBC 0.00 (0.00-0.00) K/mm3 Nucleated RBC % 0.0 (0-0.0) % Sodium 144 (137-145) mmol/L Potassium 3.7 (3.4-5.0) mmol/L Chloride 101 (98-107) mmol/L Carbon Dioxide 25 (22-30) mmol/L Anion Gap 18 H (4-12) mmol/L BUN 7 L (9-20) mg/dL Creatinine 0.71 (0.7-1.3) mg/dL Estim Creat Clear Calc 102 ml/min Estimated GFR > 60 (59 - ) Glucose 140 H (65-110) mg/dL Calculated Osmolality 298 H (285-295) mOsm/kg Lactic Acid 2.1 H (0.4-2.0) mmol/L Calcium 10.0 (8.4-10.2) mg/dL Total Bilirubin 1.5 H (0.2-1.3) mg/dL AST 146 H (17-59) U/L ALT 85 H (6-50) U/L Alkaline Phosphatase 103 (38-126) U/L Total Creatine Kinase 191 H (55-170) U/L Total Protein 10.1 H (6.3-8.2) g/dL Albumin 5.1 (3.5-5.1) g/dL Urine Color Yellow (Yellow) Urine Appearance Clear (Clear) Urine pH 6.5 (5.0-8.0) Ur Specific [place] 1.020 (1.010-1.020) Urine Protein 2+ H (Negative) Urine Glucose (UA) Negative (Negative) Urine Ketones 2+ H (Negative) Ur Blood (Man) Negative (Negative) Urine Nitrate Negative (Negative) Urine Bilirubin Negative (Negative) Urine Urobilinogen 2.0 H (0.2-1.0) mg/dL Leukocyte Esterase Rfl Negative (Negative) MICHELLE/UL Urine RBC None seen (0-2) /hpf Urine WBC None seen (0-3) /hpf Ur Squamous Epith Cells Rare (Few) /hpf Urine Bacteria Trace (None) /hpf Urine Mucus Moderate H /lpf Ethyl Alcohol < 10 (<10) mg/dL Imaging Data Attestation: I personally reviewed and interpreted this imaging study as follows: Radiologist's impression: ITS Impressions Chest X-Ray 08/19/25 15:29 IMPRESSION: 1: NO ACUTE CARDIOPULMONARY DISEASE. ECG Data EKG #1: Attestation: I personally reviewed and interpreted this ECG as follows: ECG completion date: 08/19/25 ECG completion time: 15:59 EKG Interpretation: normal rate, sinus rhythm, no ectopy, non-specific ST changes, widened QRS, normal QT and NL axis Discharge Plan Discharge Clinical Impression: Alcohol withdrawal Qualifiers: Complication of substance-induced condition: with unspecified complication Qualified Code(s): F10.939 - Alcohol use, unspecified with withdrawal, unspecified Patient Disposition: Home Condition: Improved Instructions: Alcohol Withdrawal (DC) Patient Language: Vietnamese Prescriptions: New diazepam [Valium] 5 mg tablet 5 mg PO BID PRN (Reason: alcohol withdrawal) Qty: 10 0RF ondansetron 4 mg tablet,disintegrating 4 mg PO Q8H PRN (Reason: nausea and vomiting) Qty: 20 0RF Follow-up/Referrals: UNKNOWN,DOCTOR [Non-Staff] Time of Disposition: 16:35
--- NOTE | 2025-08-19 15:15 | ECG_ITS ---
Test Date: 2025-08-19 15:39:39 Measurements Intervals [place] Rate: 83 P: 254 TN: 85 QRS: 49 QRSD: 88 T: -34 QT: 384 QTc: 452 Interpretive Statements JUNCTIONAL RHYTHM MODERATE T-WAVE ABNORMALITY, CONSIDER INFERIOR ISCHEMIA [-0.1+ mV T-WAVE IN II/aVF] No previous ECG available for comparison Electronically Signed On 08-20-2025 06:40:33 CDT by Nikky Peres M.D.
[2025-08-19] MEDS: SODIUM CHLORIDE 0.9% IV 1,000 ML 999 ML IV CONT (15:25)
[2025-08-19] MEDS: ONDANSETRON INJ 4 MG/2 ML VIAL IV PUSH (15:26)
[2025-08-19] MEDS: diazePAM INJ (*CRX) 10 MG/2 ML SYRINGE 5 MG IV PUSH ×2 (15:26→16:46)
[2025-08-19 15:30] LABS: Hematocrit 42.8 % (40.0-54.0); Hemoglobin 15.4 g/dL (14.0-18.0); Immature Granulocyte Percent A 0.3 % (0.0-0.0); Lymphocytes Absolute Auto 0.84 K/mm3 (1.10-4.50); Mean Corpuscular HGB Conc 36.0 g/dL (32-36); Mean Corpuscular Hemoglobin 32.5 pg (27.0-31.0); Mean Corpuscular Volume 90.3 fL (78.0-102.0); Nucleated Red Blood Cells Absolute Auto 0.00 K/mm3 (0.00-0.00); Nucleated Red Blood Cells Perc 0.0 % (0-0.0); Platelet Count Result 279 K/mm3 (150-420); Red Blood Count 4.74 M/mm3 (4.70-6.10); White Blood Count 10.3 K/mm3 (4.8-10.8)
[2025-08-19] MEDS: THIAMINE HCL 200 MG/2 ML VIAL 100 MG IV PUSH (15:30)
[2025-08-19 15:41] LABS: Alanine Aminotransferase 85 U/L (6-50); Albumin Level 5.1 g/dL (3.5-5.1); Alkaline Phosphatase 103 U/L (38-126); Anion Gap 18 mmol/L (4-12); Aspartate Amino Transferase 146 U/L (17-59); Bilirubin,Total 1.5 mg/dL (0.2-1.3); Blood Urea Nitrogen 7 mg/dL (9-20); Calcium 10.0 mg/dL (8.4-10.2); Carbon Dioxide 25 mmol/L (22-30); Chloride 101 mmol/L (98-107); Creatine Kinase 191 U/L (55-170); Estimated CRCL calculation 102 ml/min; Estimated Glomerular Filt Rate > 60; Glucose 140 mg/dL (65-110); Osmolality Calculated 298 mOsm/kg (285-295); Potassium 3.7 mmol/L (3.4-5.0); Sodium 144 mmol/L (137-145); Total Protein 10.1 g/dL (6.3-8.2)
--- OUTSIDE RECORDS SUMMARY | 2025-08-19 15:55 | XMS_ITS | Encounter Summary ---
Author Organization [facility] Address [address] [place] [id number] Care Team Providers Care Special Delivery Worker Name Role Phone None, Provider Primary Care Provider Unavaila Rowena Stoner NP Primary Care Provider [phone]- [phone] None, Provider Primary Care Provider Elvaa ble Encounter Details Date Type Department Care Team (Late st Contact Info) Description 05/03/2019 Abstract SFL CONVERSION [address] [place] [address] , Generic Conversion, Social History Tobacco Use Types Packs/Day Years Used Date Smoking Tobacco: Never Assessed Sex and Gender Information Value Date Recorded Sex Assigned at Not on file 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
--- OUTSIDE RECORDS SUMMARY | 2025-08-19 15:55 | XMS_ITS | Clinical Summary ---
Author Organization [facility] Address [address] [place] [address] Care Team Providers Care Oven Heater Helper Name Role Phone Unavailable Primary Care Provider Unavailabl e Source Comments [facility],non-owned Affiliates and Associated Physician Practices is amultiple site organization consisting of ambulatory clinics and hospital sitesin [place], [place], [place] and [place]. This disclosure is being madepursuant to the Care Everywhere program and may not contain all information available regarding this patient. Last updated 18.[facility] Social History Tobacco Use Types Packs/Day Years [...]
--- OUTSIDE RECORDS SUMMARY | 2025-08-19 15:55 | XMS_ITS | Clinical Summary ---
Author Organization [facility] Address Counts include 234 beds at the [facility] [place] [address] Care Team Providers Care Sales Stock Associate Name Role Phone None, Provider MD Primary [...] on file Legal Sex Male 9:58 PM [employer] STOREK[employer] Gender Identity Not on file Sexual Orientation Not on file Last Filed Vital Signs Vital Sign Reading Time Taken Comments Blood Pressure 140/83 10/13/2024 10:22 PM [employer] STOREKEEPER Pulse 83 10/13/2024 10:22 PM [employer] STOREKEEPER Temperature 36.4 C (97.6 F) 10/13/2024 10:22 PM [employer] STOREKEEPER Respiratory Rate 16 10/13/2024 10:22 PM [employer] STOREKEEPER Oxygen Saturation 99% 10/13/2024 10:22 PM [employer] STOREKEEPER Inhaled Oxygen Concentration - - Weight 57.2 kg (126 lb) 10/20/2024 2:54 PM [employer] STOREKEEPER Height 165.1 cm (5' 5) 10/20/2024 2:54 PM [employer] STOREKEEPER Body Mass Index 20.97 10/20/2024 2:54 PM [employer] STOREKEEPER Plan of Treatment Health Maintenance Due Date [...] age to complete this topic Care Teams Sales Stock Associate Relationship Specialty Start Date End Date None, Provider, PCP - General UNKNOWN PHYSICIAN SPECIALTY 10/13/24
[2025-08-19 16:24] LABS: Add Urine Microscopic? YES; Appearance Urine Clear (Clear); Glucose Urine UA Negative (Negative); Leukocyte Esterase Ur Negative LEU/UL (Negative); Nitrate Urine Negative (Negative); Specific Grav Ur 1.020 (1.010-1.020)
[2025-08-19 16:49] LABS: Cannabinoid Screen Urine Negative (Negative)
== END 2025-08-19 17:06 | disposition home or self-care (01) ==
PROVIDERS: Emergency Provider Emergency Medicine; Referring Provider Family Medicine
DX: F10.939 Alcohol use, unspecified with withdrawal, unspecified (principal); F17.210 Nicotine dependence, cigarettes, uncomplicated
CPT/HCPCS: 36415; 71045; 80053; 80307; 81001; 82077; 82550; 83605; 85025; 93005; 96361; 96374; 96375; 99284; J2405; J3360; J3411; J7030

== ENCOUNTER 2025-08-25 23:05 | Emergency (ER) | payer OTHER, SELFPAY ==
--- NOTE | 2025-08-25 23:44 | ED.PSYCH ---
HPI - Psych General Chief Complaint: Alcohol <Balta Villanueva MD - Last Filed: 08/26/25 07:00> Stated Complaint: wellness check <Balta Villanueva MD - Last Filed: 08/26/25 07:00> Time Seen by Provider: 08/25/25 23:32 <Balta Villanueva MD - Last Filed: 08/26/25 07:00> Source: patient <Balta Villanueva MD - Last Filed: 08/26/25 07:00> Mode of arrival: ambulatory <Balta Villanueva MD - Last Filed: 08/26/25 07:00> Limitations: no limitations <Balta Villanueva MD - Last Filed: 08/26/25 07:00> History of Present Illness HPI Narrative: 25-year-old male a history smoking alcoholism was brought in by his superiors ( from the [employer]) for -- depression -- excessive drinking -- auditory hallucinations He is going through a rough time at his work. People make fun of him. He has a prior history of admission to [facility] positive family history of schizophrenia and bipolar disorder on direct questioning he denies suicidal or homicidal ideation. He talks to psych counselor on a daily basis. <Balta Villanueva MD - Last Filed: 08/26/25 07:00> MD complaint: feels depressed <Balta Villanueva MD - Last Filed: 08/26/25 07:00> Onset (ago): week(s) <Balta Villanueva MD - Last Filed: 08/26/25 07:00> Duration: constant <Balta Villanueva MD - Last Filed: 08/26/25 07:00> History of same: Yes <Balta Villanueva MD - Last Filed: 08/26/25 07:00> Relieving factors: none <Balta Villanueva MD - Last Filed: 08/26/25 07:00> Exacerbating factors: none <Balta Villanueva MD - Last Filed: 08/26/25 07:00> Context: recent alcohol abuse <Balta Villanueva MD - Last Filed: 08/26/25 07:00> Associated psychiatric symptoms: depression <Balta Villanueva MD - Last Filed: 08/26/25 07:00> Associated symptoms: denies other symptoms <Balta Villanueva MD - Last Filed: 08/26/25 07:00> Treatments prior to arrival: none <Balta Villanueva MD - Last Filed: 08/26/25 07:00> Related Data Allergies/Adverse Reactions: Allergies Allergy/AdvReac Type Severity Reaction Status Date / Time No Known Allergies Allergy Verified 08/26/25 06:26 <Balta Villanueva MD - Last Filed: 08/26/25 07:00> Review of Systems Constitutional: Constitutional: Reports as per HPI <Balta Villanueva MD - Last Filed: 08/26/25 07:00> Eyes: Eyes: Reports as per HPI and Reports no additional eye complaints <Balta Villanueva MD - Last Filed: 08/26/25 07:00> ENT: Reports system reviewed and no additional complaints, except as documented and Reports as per HPI <Balta Villanueva MD - Last Filed: 08/26/25 07:00> Cardiovascular: Cardiovascular: Reports as per HPI and Reports no additional cardiovascular complaints <Balta Villanueva MD - Last Filed: 08/26/25 07:00> Respiratory: Respiratory: Reports as per HPI and Reports no additional respiratory complaints <Balta Villanueva MD - Last Filed: 08/26/25 07:00> Gastrointestinal: Gastrointestinal: Reports as per HPI and Reports no additional gastrointestinal complaints <Balta Villanueva MD - Last Filed: 08/26/25 07:00> Genitourinary: Genitourinary: Reports no additional male genitourinary complaints and Reports as per HPI <Balta Villanueva MD - Last Filed: 08/26/25 07:00> Musculoskeletal: Musculoskeletal: Reports no additional musculoskeletal complaints and Reports as per HPI <Balta Villanueva MD - Last Filed: 08/26/25 07:00> Integumentary/Breasts: Skin/Breast: Reports system reviewed and no additional complaints, except as docu and Reports as per HPI <Balta Villanueva MD - Last Filed: 08/26/25 07:00> Neurologic: Reports system reviewed and no additional complaints, except as documented and Reports as per HPI <Balta Villanueva MD - Last Filed: 08/26/25 07:00> Psychiatric: Psychiatric: Reports no additional psychiatric complaints, Reports as per HPI and Reports depression <Balta Villanueva MD - Last Filed: 08/26/25 07:00> Endocrine: Endocrine: Reports no additional endocrine complaints and Reports as per HPI <Balta Villanueva MD - Last Filed: 08/26/25 07:00> Hematologic/Lymphatic: Hematologic/Lymphatic: Reports no additional hematologic/lymphatic complaints and Reports as per HPI <Balta Villanueva MD - Last Filed: 08/26/25 07:00> Allergic/Immunologic: Allergic/Immunologic: Reports no additional allergic/immunologic complaints and Reports as per HPI <Balta Villanueva MD - Last Filed: 08/26/25 07:00> [facility] Past Medical History Medical History: Medical History Kidney stones No active medical problems <Balta Villanueva MD - Last Filed: 08/26/25 07:00> Surgical History Surgical History: Surgical History History of tonsillectomy S/P hernia repair <Balta Villanueva MD - Last Filed: 08/26/25 07:00> Social History Social History: Social History Smoking packs per day: 0.5 Smoking cigarettes per day: 10.0 Smoking status: Current every day smoker Tobacco type: cigarettes Alcohol intake: former Substance use: current Substance use type: does not use Gender identity (if verbalized by the patient): Male <Balta Villanueva MD - Last Filed: 08/26/25 07:00> Exam Narrative: Vitals are stable. <Balta Villanueva MD - Last Filed: 08/26/25 07:00> Const: General: ill appearing <Balta Villanueva MD - Last Filed: 08/26/25 07:00> Nutritional Appearance: thin <Balta Villanueva MD - Last Filed: 08/26/25 07:00> Other: Patient is awake but intoxicated. He is oriented to place and time <Balta Villanueva MD - Last Filed: 08/26/25 07:00> HENMT: Head: normal to inspection <Balta Villanueva MD - Last Filed: 08/26/25 07:00> Ears: external ears normal <Balta Villanueva MD - Last Filed: 08/26/25 07:00> Face/Nose/Sinus: Normal external nose present <Balta Villanueva MD - Last Filed: 08/26/25 07:00> Face and sinus: normal facial exam <Balta Villanueva MD - Last Filed: 08/26/25 07:00> Mouth: Yes Normal oral and palatal mucosa present <Balta Villanueva MD - Last Filed: 08/26/25 07:00> Throat: posterior oropharynx normal <Balta Villanueva MD - Last Filed: 08/26/25 07:00> Eyes: Conjunctivae: conjunctivae normal <Balta Villanueva MD - Last Filed: 08/26/25 07:00> Pupils: Equal, round and reactive pupils present <Balta Villanueva MD - Last Filed: 08/26/25 07:00> EOM: EOMs intact bilaterally <Balta Villanueva MD - Last Filed: 08/26/25 07:00> Direct Ophthalmoscopy: no photophobia <Balta Villanueva MD - Last Filed: 08/26/25 07:00> Neck: Neck: normal visual inspection, no lymphadenopathy and no meningeal signs <Balta Villanueva MD - Last Filed: 08/26/25 07:00> Chest: Chest palpation & inspection: normal inspection of the chest <Balta Villanueva MD - Last Filed: 08/26/25 07:00> Resp: Effort & Inspection: normal respiratory effort <Balta Villanueva MD - Last Filed: 08/26/25 07:00> Auscultation: clear to auscultation bilaterally <Balta Villanueva MD - Last Filed: 08/26/25 07:00> Cardio: Rate: regular rate <Balta Villanueva MD - Last Filed: 08/26/25 07:00> Rhythm: regular rhythm <Balta Villanueva MD - Last Filed: 08/26/25 07:00> GI: GI Palp: Yes Soft to palpation <Balta Villanueva MD - Last Filed: 08/26/25 07:00> Auscultation: normal bowel sounds <Balta Villanueva MD - Last Filed: 08/26/25 07:00> : General: Yes no CVA tenderness <Balta Villanueva MD - Last Filed: 08/26/25 07:00> Back/Spine/Pelvis: Back: no CVA tenderness <Balta Villanueva MD - Last Filed: 08/26/25 07:00> Skin: Other: multiple healed scars on his upper and lower extremities caused by his dog <Balta Villanueva MD - Last Filed: 08/26/25 07:00> Neuro: General: patient oriented x3, moves all extremities, no meningeal signs, no focal motor deficits and CN's II-XI intact bilaterally <Balta Villanueva MD - Last Filed: 08/26/25 07:00> Cranial nerves: Yes Nystagmus not present <Balta Villanueva MD - Last Filed: 08/26/25 07:00> Speech: normal speech <Balta Villanueva MD - Last Filed: 08/26/25 07:00> Gait exam (Neuro): Normal gait present <Balta Villanueva MD - Last Filed: 08/26/25 07:00> Extrem: General: no clubbing, cyanosis or edema <Balta Villanueva MD - Last Filed: 08/26/25 07:00> Psych: Mental Status: mental status grossly normal <Balta Villanueva MD - Last Filed: 08/26/25 07:00> Other: patient has depressed. Denies suicidal or homicidal ideation. No delusions questionable auditory hallucinations <Balta Villanueva MD - Last Filed: 08/26/25 07:00> Course Course Emergency Course: Alcohol intoxication alcoholic hepatitis depression 2:50 a.m.-- patient is tremulous and shaky. Appears to be very anxious. Will give him Valium 5 mg and thiamine 100 mg. The patient has been drinking apple juice sign out the patient to <Balta Villanueva MD - Last Filed: 08/26/25 07:00> Vital Signs Vital signs: Vital Signs Temperature 36.4 C 08/26/25 00:20 Pulse Rate 85 08/26/25 00:20 Respiratory Rate 18 08/26/25 00:20 Blood Pressure 133/98 H 08/26/25 00:20 Pulse Oximetry 98 08/26/25 00:20 Oxygen Delivery Room Air 08/26/25 00:20 Temperature 36.6 C 08/26/25 04:11 Pulse Rate 70 08/26/25 04:11 Respiratory Rate 16 08/26/25 04:11 Blood Pressure 118/72 08/26/25 04:11 Pulse Oximetry 98 08/26/25 04:11 Oxygen Delivery Room Air 08/26/25 04:11 <Balta Villanueva MD - Last Filed: 08/26/25 07:00> Vital Signs Temperature 36.4 C 08/26/25 00:20 Pulse Rate 85 08/26/25 00:20 Respiratory Rate 18 08/26/25 00:20 Blood Pressure 133/98 H 08/26/25 00:20 Pulse Oximetry 98 08/26/25 00:20 Oxygen Delivery Room Air 08/26/25 00:20 Temperature 36.6 C 08/26/25 04:11 Pulse Rate 70 08/26/25 04:11 Respiratory Rate 16 08/26/25 04:11 Blood Pressure 118/72 08/26/25 04:11 Pulse Oximetry 98 08/26/25 04:11 Oxygen Delivery Room Air 08/26/25 04:11 <Jaime Puga MD - Last Filed: 08/26/25 08:34> MDM - Psych MDM Narrative Medical decision making narrative: alcohol intoxication alcoholic hepatitis alcohol withdrawal depression <Balta Villanueva MD - Last Filed: 08/26/25 07:00> alcohol intoxication alcoholic hepatitis alcohol withdrawal depression Patient was signed out to me at shift change; patient is not suicidal at this point. We will recheck his alcohol level. Recheck alcohol was 81. We will have patient brought by his significant partner to [facility] ER as he needs to walk in to get inpatient alcohol rehabilitation and detoxification. Patient is not suicidal at this time. Patient is not homicidal at this time. AAO x4. Patient has the decision making capacity to agree to a discharge and to go to their agreed upon hospital for inpatient rehab and detox. Vital signs stable on exam stable. <Jaime Puga MD - Last Filed: 08/26/25 08:34> Differential Diagnosis Differential diagnosis: Likely acute psychosis <Balta Villanueva MD - Last Filed: 08/26/25 07:00> Medical Records Attestation: I reviewed the patient's medical records. <Balta Villanueva MD - Last Filed: 08/26/25 07:00> Lab Data Attestation: I reviewed the patient's lab results. <Balta Villanueva MD - Last Filed: 08/26/25 07:00> Result diagrams: 08/26/25 00:12 08/26/25 07:14 <Balta Villanueva MD - Last Filed: 08/26/25 07:00> Labs: Lab Results 08/26/25 08/26/25 08/26/25 Range/Units 00:12 03:16 07:13 WBC 6.6 (4.8-10.8) K/mm3 RBC 4.36 L (4.70-6.10) M/mm3 Hgb 13.9 L (14.0-18.0) g/dL Hct 40.0 (40.0-54.0) % MCV 91.7 (78.0-102.0) fL MCH 31.9 H (27.0-31.0) pg MCHC 34.8 (32-36) g/dL RDW 12.0 (11.6-14.4) % Plt Count 233 (150-420) K/mm3 MPV 9.3 (8.7-11.0) fl Immature Gran % (Auto) 0.3 H (0.0-0.0) % Neut % (Auto) 38.2 L (50.0-70.0) % Lymph % (Auto) 52.1 H (18.0-42.0) % [place] % (Auto) 7.0 (2.0-11.0) % Eos % (Auto) 1.2 (1.0-6.0) % Baso % (Auto) 1.2 H (0.0-1.0) % Lymph # (Auto) 3.44 (1.10-4.50) K/mm3 [place] # (Auto) 0.46 (0.10-0.90) K/mm3 Eos # (Auto) 0.08 (0.02-0.50) K/mm3 Baso # (Auto) 0.08 (0.00-0.10) K/mm3 Abs Immat Gran (auto) 0.02 H (0.00-0.00) K/mm3 Absolute Neuts (auto) 2.52 (1.70-7.20) K/mm3 Absolute Nucleated RBC 0.00 (0.00-0.00) K/mm3 Nucleated RBC % 0.0 (0-0.0) % Sodium 148 H (137-145) mmol/L Potassium 3.7 (3.4-5.0) mmol/L Chloride 105 (98-107) mmol/L Carbon Dioxide 31 H (22-30) mmol/L Anion Gap 12 (4-12) mmol/L BUN 4 L (9-20) mg/dL Creatinine 0.77 (0.7-1.3) mg/dL Estim Creat Clear Calc 102 ml/min Estimated GFR > 60 (59 - ) Glucose 111 H (65-110) mg/dL Calculated Osmolality 303 H (285-295) mOsm/kg Calcium 9.4 (8.4-10.2) mg/dL Magnesium 2.1 (1.6-2.3) mg/dL Total Bilirubin 0.6 (0.2-1.3) mg/dL AST 218 H (17-59) U/L ALT 105 H (6-50) U/L Alkaline Phosphatase 64 (38-126) U/L Total Creatine Kinase 124 (55-170) U/L Total Protein 8.3 H (6.3-8.2) g/dL Albumin 4.6 (3.5-5.1) g/dL Lipase 496 H (23-300) U/L TSH 2.750 (0.465-4.680) uIU/mL Urine Color Light yellow (Yellow) Urine Appearance Clear (Clear) Urine pH 7.0 (5.0-8.0) Ur Specific [place] [place] 1.015 (1.010-1.020) Urine Protein Negative (Negative) Urine Glucose (UA) Negative (Negative) Urine Ketones Negative (Negative) Ur Blood (Man) Negative (Negative) Urine Nitrate Negative (Negative) Urine Bilirubin Negative (Negative) Urine Urobilinogen 0.2 (0.2-1.0) mg/dL Leukocyte Esterase Rfl Negative (Negative) MICHELLE/UL Salicylates < 1.0 L (2-20) mg/dL Urine Opiates Screen Negative (Negative) Urine Methadone Screen Negative (Negative) Acetaminophen < 10 L (10-30) ug/mL Ur Barbiturates Screen Negative (Negative) Ur Phencyclidine Scrn Negative (Negative) Ur Amphetamine Screen Negative (Negative) U Benzodiazepines Scrn Positive A (Negative) Urine Cocaine Screen Negative (Negative) U Cannabinoids Screen Negative (Negative) Ethyl Alcohol 259 81 (<10) mg/dL 08/26/25 Range/Units 07:14 WBC (4.8-10.8) K/mm3 RBC (4.70-6.10) M/mm3 Hgb (14.0-18.0) g/dL Hct (40.0-54.0) % MCV (78.0-102.0) fL MCH (27.0-31.0) pg MCHC (32-36) g/dL RDW (11.6-14.4) % Plt Count (150-420) K/mm3 MPV (8.7-11.0) fl Immature Gran % (Auto) (0.0-0.0) % Neut % (Auto) (50.0-70.0) % Lymph % (Auto) (18.0-42.0) % [place] % (Auto) (2.0-11.0) % Eos % (Auto) (1.0-6.0) % Baso % (Auto) (0.0-1.0) % Lymph # (Auto) (1.10-4.50) K/mm3 [place] # (Auto) (0.10-0.90) K/mm3 Eos # (Auto) (0.02-0.50) K/mm3 Baso # (Auto) (0.00-0.10) K/mm3 Abs Immat Gran (auto) (0.00-0.00) K/mm3 Absolute Neuts (auto) (1.70-7.20) K/mm3 Absolute Nucleated RBC (0.00-0.00) K/mm3 Nucleated RBC % (0-0.0) % Sodium 146 H (137-145) mmol/L Potassium 3.1 L (3.4-5.0) mmol/L Chloride 104 (98-107) mmol/L Carbon Dioxide 33 H (22-30) mmol/L Anion Gap 9 (4-12) mmol/L BUN 4 L (9-20) mg/dL Creatinine 0.76 (0.7-1.3) mg/dL Estim Creat Clear Calc 103 ml/min Estimated GFR > 60 (59 - ) Glucose 103 (65-110) mg/dL Calculated Osmolality 298 H (285-295) mOsm/kg Calcium 9.0 (8.4-10.2) mg/dL Magnesium (1.6-2.3) mg/dL Total Bilirubin 0.7 (0.2-1.3) mg/dL AST 192 H (17-59) U/L ALT 96 H (6-50) U/L Alkaline Phosphatase 61 (38-126) U/L Total Creatine Kinase (55-170) U/L Total Protein 7.1 (6.3-8.2) g/dL Albumin 4.1 (3.5-5.1) g/dL Lipase (23-300) U/L TSH (0.465-4.680) uIU/mL Urine Color (Yellow) Urine Appearance (Clear) Urine pH (5.0-8.0) Ur Specific Mc[facility] [place] (1.010-1.020) Urine Protein (Negative) Urine Glucose (UA) (Negative) Urine Ketones (Negative) Ur Blood (Man) (Negative) Urine Nitrate (Negative) Urine Bilirubin (Negative) Urine Urobilinogen (0.2-1.0) mg/dL Leukocyte Esterase Rfl (Negative) MICHELLE/UL Salicylates (2-20) mg/dL Urine Opiates Screen (Negative) Urine Methadone Screen (Negative) Acetaminophen (10-30) ug/mL Ur Barbiturates Screen (Negative) Ur Phencyclidine Scrn (Negative) Ur Amphetamine Screen (Negative) U Benzodiazepines Scrn (Negative) Urine Cocaine Screen (Negative) U Cannabinoids Screen (Negative) Ethyl Alcohol (<10) mg/dL <Balta Villanueva MD - Last Filed: 08/26/25 07:00> Lab Results 08/26/25 08/26/25 08/26/25 Range/Units 00:12 03:16 07:13 WBC 6.6 (4.8-10.8) K/mm3 RBC 4.36 L (4.70-6.10) M/mm3 Hgb 13.9 L (14.0-18.0) g/dL Hct 40.0 (40.0-54.0) % MCV 91.7 (78.0-102.0) fL MCH 31.9 H (27.0-31.0) pg MCHC 34.8 (32-36) g/dL RDW 12.0 (11.6-14.4) % Plt Count 233 (150-420) K/mm3 MPV 9.3 (8.7-11.0) fl Immature Gran % (Auto) 0.3 H (0.0-0.0) % Neut % (Auto) 38.2 L (50.0-70.0) % Lymph % (Auto) 52.1 H (18.0-42.0) % [place] % (Auto) 7.0 (2.0-11.0) % Eos % (Auto) 1.2 (1.0-6.0) % Baso % (Auto) 1.2 H (0.0-1.0) % Lymph # (Auto) 3.44 (1.10-4.50) K/mm3 [place] # (Auto) 0.46 (0.10-0.90) K/mm3 Eos # (Auto) 0.08 (0.02-0.50) K/mm3 Baso # (Auto) 0.08 (0.00-0.10) K/mm3 Abs Immat Gran (auto) 0.02 H (0.00-0.00) K/mm3 Absolute Neuts (auto) 2.52 (1.70-7.20) K/mm3 Absolute Nucleated RBC 0.00 (0.00-0.00) K/mm3 Nucleated RBC % 0.0 (0-0.0) % Sodium 148 H (137-145) mmol/L Potassium 3.7 (3.4-5.0) mmol/L Chloride 105 (98-107) mmol/L Carbon Dioxide 31 H (22-30) mmol/L Anion Gap 12 (4-12) mmol/L BUN 4 L (9-20) mg/dL Creatinine 0.77 (0.7-1.3) mg/dL Estim Creat Clear Calc 102 ml/min Estimated GFR > 60 (59 - ) Glucose 111 H (65-110) mg/dL Calculated Osmolality 303 H (285-295) mOsm/kg Calcium 9.4 (8.4-10.2) mg/dL Magnesium 2.1 (1.6-2.3) mg/dL Total Bilirubin 0.6 (0.2-1.3) mg/dL AST 218 H (17-59) U/L ALT 105 H (6-50) U/L Alkaline Phosphatase 64 (38-126) U/L Total Creatine Kinase 124 (55-170) U/L Total Protein 8.3 H (6.3-8.2) g/dL Albumin 4.6 (3.5-5.1) g/dL Lipase 496 H (23-300) U/L TSH 2.750 (0.465-4.680) uIU/mL Urine Color Light yellow (Yellow) Urine Appearance Clear (Clear) Urine pH 7.0 (5.0-8.0) Ur Specific [place] [place] 1.015 (1.010-1.020) Urine Protein Negative (Negative) Urine Glucose (UA) Negative (Negative) Urine Ketones Negative (Negative) Ur Blood (Man) Negative (Negative) Urine Nitrate Negative (Negative) Urine Bilirubin Negative (Negative) Urine Urobilinogen 0.2 (0.2-1.0) mg/dL Leukocyte Esterase Rfl Negative (Negative) MICHELLE/UL Salicylates < 1.0 L (2-20) mg/dL Urine Opiates Screen Negative (Negative) Urine Methadone Screen Negative (Negative) Acetaminophen < 10 L (10-30) ug/mL Ur Barbiturates Screen Negative (Negative) Ur Phencyclidine Scrn Negative (Negative) Ur Amphetamine Screen Negative (Negative) U Benzodiazepines Scrn Positive A (Negative) Urine Cocaine Screen Negative (Negative) U Cannabinoids Screen Negative (Negative) Ethyl Alcohol 259 81 (<10) mg/dL 10/01/25 Range/Units 07:14 WBC (4.8-10.8) K/mm3 RBC (4.70-6.10) M/mm3 Hgb (14.0-18.0) g/dL Hct (40.0-54.0) % MCV (78.0-102.0) fL MCH (27.0-31.0) pg MCHC (32-36) g/dL RDW (11.6-14.4) % Plt Count (150-420) K/mm3 MPV (8.7-11.0) fl Immature Gran % (Auto) (0.0-0.0) % Neut % (Auto) (50.0-70.0) % Lymph % (Auto) (18.0-42.0) % [place] % (Auto) (2.0-11.0) % Eos % (Auto) (1.0-6.0) % Baso % (Auto) (0.0-1.0) % Lymph # (Auto) (1.10-4.50) K/mm3 [place] # (Auto) (0.10-0.90) K/mm3 Eos # (Auto) (0.02-0.50) K/mm3 Baso # (Auto) (0.00-0.10) K/mm3 Abs Immat Gran (auto) (0.00-0.00) K/mm3 Absolute Neuts (auto) (1.70-7.20) K/mm3 Absolute Nucleated RBC (0.00-0.00) K/mm3 Nucleated RBC % (0-0.0) % Sodium 146 H (137-145) mmol/L Potassium 3.1 L (3.4-5.0) mmol/L Chloride 104 (98-107) mmol/L Carbon Dioxide 33 H (22-30) mmol/L Anion Gap 9 (4-12) mmol/L BUN 4 L (9-20) mg/dL Creatinine 0.76 (0.7-1.3) mg/dL Estim Creat Clear Calc 103 ml/min Estimated GFR > 60 (59 - ) Glucose 103 (65-110) mg/dL Calculated Osmolality 298 H (285-295) mOsm/kg Calcium 9.0 (8.4-10.2) mg/dL Magnesium (1.6-2.3) mg/dL Total Bilirubin 0.7 (0.2-1.3) mg/dL AST 192 H (17-59) U/L ALT 96 H (6-50) U/L Alkaline Phosphatase 61 (38-126) U/L Total Creatine Kinase (55-170) U/L Total Protein 7.1 (6.3-8.2) g/dL Albumin 4.1 (3.5-5.1) g/dL Lipase (23-300) U/L TSH (0.465-4.680) uIU/mL Urine Color (Yellow) Urine Appearance (Clear) Urine pH (5.0-8.0) Ur Specific [place] [place] (1.010-1.020) Urine Protein (Negative) Urine Glucose (UA) (Negative) Urine Ketones (Negative) Ur Blood (Man) (Negative) Urine Nitrate (Negative) Urine Bilirubin (Negative) Urine Urobilinogen (0.2-1.0) mg/dL Leukocyte Esterase Rfl (Negative) MICHELLE/UL Salicylates (2-20) mg/dL Urine Opiates Screen (Negative) Urine Methadone Screen (Negative) Acetaminophen (10-30) ug/mL Ur Barbiturates Screen (Negative) Ur Phencyclidine Scrn (Negative) Ur Amphetamine Screen (Negative) U Benzodiazepines Scrn (Negative) Urine Cocaine Screen (Negative) U Cannabinoids Screen (Negative) Ethyl Alcohol (<10) mg/dL <Jaime Puga MD - Last Filed: 08/26/25 08:34> ECG Data EKG #1: ECG completion date: 08/26/25 <Balta Villanueva MD - Last Filed: 08/26/25 07:00> ECG completion time: 00:26 <Balta Villanueva MD - Last Filed: 08/26/25 07:00> Interpretation: normal sinus rhythm. Normal axis. No ST elevation. <Balta Villanueva MD - Last Filed: 08/26/25 07:00> Discharge Plan Discharge Clinical Impression: Alcoholic intoxication Qualifiers: Complication of substance-induced condition: uncomplicated Qualified Code(s): F10.920 - Alcohol use, unspecified with intoxication, uncomplicated Alcohol withdrawal syndrome Qualifiers: Complication of substance-induced condition: uncomplicated Qualified Code(s): F10.930 - Alcohol use, unspecified with withdrawal, uncomplicated <Balta Villanueva MD - Last Filed: 08/26/25 07:00> Patient Disposition: Home <Balta Villanueva MD - Last Filed: 08/26/25 07:00> Condition: Stable <Balta Villanueva MD - Last Filed: 08/26/25 07:00> Instructions: Alcohol Dependence (ED), Help Prevent Suicide (ED) <Balta Villanueva MD - Last Filed: 08/26/25 07:00> Additional Instructions: Please proceed to [facility] emergency room and tell them you are there for alcohol withdrawal and inpatient detoxification. <Balta Villanueva MD - Last Filed: 08/26/25 07:00> Patient Language: Slovak <Balta Villanueva MD - Last Filed: 08/26/25 07:00> Prescriptions: No Action diazepam [Valium] 5 mg tablet 5 mg PO BID PRN (Reason: alcohol withdrawal) Qty: 10 0RF ondansetron 4 mg tablet,disintegrating 4 mg PO Q8H PRN (Reason: nausea and vomiting) Qty: 20 0RF <Balta Villanueva MD - Last Filed: 08/26/25 07:00> Follow-up/Referrals: UNKNOWN,DOCTOR [Primary Care Provider] <Balta Villanueva MD - Last Filed: 08/26/25 07:00> Time of Disposition: 08:34 <Balta Villanueva MD - Last Filed: 08/26/25 07:00> 08:34 <Jaime Puga MD - Last Filed: 08/26/25 08:34>
--- NOTE | 2025-08-25 23:58 | ECG_ITS ---
Test Date: 2025-08-26 00:26:20 Measurements Intervals [place] Rate: 83 P: 39 MO: 130 QRS: 17 QRSD: 93 T: 28 QT: 358 QTc: 421 Interpretive Statements SINUS RHYTHM BASELINE ARTIFACT- I, II, III, AVR, AVL, AVF, V1-V6 NORMAL ECG Compared to ECG 08/19/2025 15:39:39 Junctional rhythm no longer present POSSIBLE ISCHEMIA NO LONGER PRESENT Electronically Signed On 08-26-2025 06:29:31 CDT by Rufino Mackay D.O.
[2025-08-26 00:20] VITALS: BP 133/98; PULSE 85; RESP 18; TEMP 36.4; O2SAT 98
[2025-08-26 00:30] LABS: Hematocrit 40.0 % (40.0-54.0); Hemoglobin 13.9 g/dL (14.0-18.0); Immature Granulocyte Percent A 0.3 % (0.0-0.0); Lymphocytes Absolute Auto 3.44 K/mm3 (1.10-4.50); Mean Corpuscular HGB Conc 34.8 g/dL (32-36); Mean Corpuscular Hemoglobin 31.9 pg (27.0-31.0); Mean Corpuscular Volume 91.7 fL (78.0-102.0); Nucleated Red Blood Cells Absolute Auto 0.00 K/mm3 (0.00-0.00); Nucleated Red Blood Cells Perc 0.0 % (0-0.0); Platelet Count Result 233 K/mm3 (150-420); Red Blood Count 4.36 M/mm3 (4.70-6.10); White Blood Count 6.6 K/mm3 (4.8-10.8)
--- OUTSIDE RECORDS SUMMARY | 2025-08-26 00:43 | XMS_ITS | Clinical Summary ---
Author Organization 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 [employer] Gender Identity Not on file Sexual Orientation Not on file Last Filed Vital Signs Vital Sign Reading Time Taken Comments Blood Pressure 140/83 10/13/2024 10:22 PM MACHINE [employer] Pulse 83 10/13/2024 10:22 PM MACHINE [employer] Temperature 36.4 C (97.6 F) 10/13/2024 10:22 PM MACHINE [employer] Respiratory Rate 16 10/13/2024 10:22 PM MACHINE [employer] Oxygen Saturation 99% 10/13/2024 10:22 PM MACHINE [employer] Inhaled Oxygen Concentration - - Weight 57.2 kg (126 lb) 10/20/2024 2:54 PM MACHINE [employer] Height 165.1 cm (5' 5) 10/20/2024 2:54 PM MACHINE [employer] Body Mass Index 20.97 10/20/2024 2:54 PM MACHINE [employer] Plan of Treatment Health Maintenance Due Date [...] age to complete this topic Care Teams 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
--- OUTSIDE RECORDS SUMMARY | 2025-08-26 00:43 | XMS_ITS | Encounter Summary ---
Author Organization [facility] Address [address] [place] [id number] Care Team Providers Care Horse Race Starter Name Role Phone None, Provider Primary Care Provider Unavaila Rowena Stoner NP Primary Care Provider [phone] None, Provider Primary Care Provider Elvaa ble Encounter Details Date Type Department Care Team (Late st Contact Info) Description 05/03/2019 Abstract [facility] CONVERSION [address] [place] [address] , Generic Conversion, Social History Tobacco Use Types Packs/Day Years Used Date Smoking Tobacco: Never Assessed Sex and Gender Information Value Date Recorded Sex Assigned at Not on file Legal Sex Male 9:58 PM BELT SANDER STONE Gender Identity Not on file Sexual Orientation Not on file documented as of this encounter Plan of Treatment Not on file documented as of this encounter Visit Diagnoses Not on filedocumented in this encounter Care Teams Horse Race Starter Relationship Specialty Start Date End Date None, ProviderMD PCP - General 08/21/19 11/02/20 Rowena Hills, STEPHANIE PCP - General Nurse Practitioner Family 11/03/20 None, ProviderMD PCP - General UNKNOWN PHYSICIAN SPECIALTY 10/13/24 documented as of this encounter
--- OUTSIDE RECORDS SUMMARY | 2025-08-26 00:43 | XMS_ITS | Clinical Summary ---
Author Organization [facility] Address [address] [place] [address] Care Team Providers Care Inspector Subassembly Name Role Phone Unavailable Primary Care Provider Unavailabl e Source Comments [facility],non-owned Affiliates and Associated Physician Practices is amultiple site organization consisting of ambulatory clinics and hospital sitesin [place], [place], [place] and [place]. This disclosure is being madepursuant to the Care Everywhere program and may not contain all information available regarding this patient. Last updated 18.[facility] Social History Tobacco Use Types Packs/Day Years [...]
[2025-08-26 02:42] LABS: Alanine Aminotransferase 105 U/L (6-50); Albumin Level 4.6 g/dL (3.5-5.1); Alkaline Phosphatase 64 U/L (38-126); Anion Gap 12 mmol/L (4-12); Aspartate Amino Transferase 218 U/L (17-59); Bilirubin,Total 0.6 mg/dL (0.2-1.3); Blood Urea Nitrogen 4 mg/dL (9-20); Calcium 9.4 mg/dL (8.4-10.2); Carbon Dioxide 31 mmol/L (22-30); Chloride 105 mmol/L (98-107); Estimated CRCL calculation 102 ml/min; Estimated Glomerular Filt Rate > 60; Glucose 111 mg/dL (65-110); Osmolality Calculated 303 mOsm/kg (285-295); Potassium 3.7 mmol/L (3.4-5.0); Sodium 148 mmol/L (137-145); Total Protein 8.3 g/dL (6.3-8.2)
[2025-08-26 02:44] LABS: Thyroid Stimulating Hormone 2.750 uIU/mL (0.465-4.680)
[2025-08-26 02:57] LABS: Acetaminophen < 10 ug/mL (10-30); Salicylate < 1.0 mg/dL (2-20)
[2025-08-26 02:59] LABS: Creatine Kinase 124 U/L (55-170); Lipase 496 U/L (23-300); Magnesium 2.1 mg/dL (1.6-2.3)
[2025-08-26] MEDS: diazePAM (*CRX) 5 MG TABLET PO (03:08)
[2025-08-26] MEDS: THIAMINE HCL 100 MG TABLET PO (03:08)
[2025-08-26 03:31] LABS: Add Urine Microscopic? NO; Appearance Urine Clear (Clear); Glucose Urine UA Negative (Negative); Leukocyte Esterase Ur Negative LEU/UL (Negative); Nitrate Urine Negative (Negative); Specific Grav Ur 1.015 (1.010-1.020)
[2025-08-26 04:07] LABS: Cannabinoid Screen Urine Negative (Negative)
[2025-08-26 04:11] VITALS: BP 118/72; PULSE 70; RESP 16; TEMP 36.6; O2SAT 98
[2025-08-26 07:33] LABS: Alanine Aminotransferase 96 U/L (6-50); Albumin Level 4.1 g/dL (3.5-5.1); Alkaline Phosphatase 61 U/L (38-126); Anion Gap 9 mmol/L (4-12); Aspartate Amino Transferase 192 U/L (17-59); Bilirubin,Total 0.7 mg/dL (0.2-1.3); Blood Urea Nitrogen 4 mg/dL (9-20); Calcium 9.0 mg/dL (8.4-10.2); Carbon Dioxide 33 mmol/L (22-30); Chloride 104 mmol/L (98-107); Estimated CRCL calculation 103 ml/min; Estimated Glomerular Filt Rate > 60; Glucose 103 mg/dL (65-110); Osmolality Calculated 298 mOsm/kg (285-295); Potassium 3.1 mmol/L (3.4-5.0); Sodium 146 mmol/L (137-145); Total Protein 7.1 g/dL (6.3-8.2)
[2025-08-26] MEDS: POTASSIUM CHLORIDE 20 MEQ ER TABLET PO (09:10)
== END 2025-08-26 09:14 | disposition home or self-care (01) ==
PROVIDERS: Emergency Medicine; Emergency Provider Internal Medicine Critical Care Medicine
DX: F10.930 Alcohol use, unspecified with withdrawal, uncomplicated (principal); F17.210 Nicotine dependence, cigarettes, uncomplicated
CPT/HCPCS: 36415; 80053; 80143; 80179; 80307; 81003; 82077; 82550; 83690; 83735; 84443; 85025; 93005; 99284; A9270